=== PATIENT | male | born 1950 | race Caucasian/White ===

== ENCOUNTER 2018-04-15 18:57 | Emergency (ER) | payer MEDICARE, OTHER ==
--- NOTE | 2018-04-15 19:40 | ERPHSYRPT ---
- History of Present Illness Time Seen by Provider: 04/15/18 19:22 Source: patient Exam Limitations: no limitations Patient Subjective Stated Complaint: pt states that he was at work yesterday and had his hammer hanging on his pants and it kept hitting his right knee everytime he walked and by the end of the day he wasn't able to walk on it. pt has had 650mg Tylenol and 10mg of Baclofen at 1400 Triage Nursing Assessment: pt is alert and oriented. pt using wheelchair currently. he usually is able to ambulate easily. pt right knee does not have any obvious swelling as compared to the the left knee. pt does have limited mobility of his right knee and is unable to bend it or put any weight on it. no bruising redness or abrasions noted. pt states that his pain is mostly on the outer aspect of his knee. Physician History: Pt started c/o pain in his right lateral knee, and leg area since yesterday, since he sustained repetitive injuries from a hammer to that area yesterday. He denies direct trauma, fall, swelling, no chest pain, SOB, nausea, other complaints. His states, he has been receiving steroid shots to his right knee, last one was 2- 3 months ago Method of Injury: other (repetitive, minor injuries) Occurred: yesterday Quality: constant Severity of Pain-Max: moderate Severity of Pain-Current: moderate Lower Extremities Pain: knee: right Modifying Factors: Improves With: movement Associated Symptoms: none Allergies/Adverse Reactions: No Known Drug Allergies Allergy (Unverified 07/04/14 07:55) Home Medications: Metformin HCl [Metformin HCl ER] 500 mg PO DAILY 07/04/14 [History] Ropinirole HCl 1 mg PO DAILY 07/04/14 [History] Simvastatin 10 mg PO DAILY 07/04/14 [History] Naproxen 500 mg [Naprosyn 500 MG] 250 mg PO BID 04/15/18 [History] Hx Tetanus, Diphtheria Vaccination/Date Given: Yes (04/01/18) Hx Influenza Vaccination/Date Given: Yes (2012) Hx Pneumococcal Vaccination/Date Given: No Immunizations Up to Date: Yes - Review of Systems Constitutional: No Symptoms Respiratory: No Symptoms Cardiac: No Symptoms Abdominal/Gastrointestinal: No Symptoms Musculoskeletal: Joint Pain All Other Systems: Reviewed and Negative - Past Medical History Pertinent Past Medical History: Yes Cardiac History: High Cholesterol, Hypertension Endocrine Medical History: Diabetes Type II Male Reproductive Disorders: Prostate Cancer Other Medical History: skin cancer. - Past Surgical History Past Surgical History: Yes Male Surgical History: Prostate Surgery - Social History Smoking Status: Former smoker Exposure to second hand smoke: No Drug Use: none Patient Lives Alone: No - Nursing Vital Signs Nursing Vital Signs: Initial Vital Signs Temperature 98.4 F 04/15/18 18:58 Pulse Rate 82 04/15/18 18:58 Respiratory Rate 16 04/15/18 18:58 Blood Pressure 159/72 04/15/18 18:58 O2 Sat by Pulse Oximetry 97 04/15/18 18:58 Pain Scale Pain Intensity 8 - Physical Exam General Appearance: no apparent distress Eyes, Ears, Nose, Throat Exam: normal ENT inspection Neck Exam: normal inspection, non-tender Cardiovascular/Respiratory Exam: chest non-tender, normal breath sounds, regular rate/rhythm, heart sounds normal, No no JVD Gastrointestinal/Abdominal Exam: non-tender, soft Back Exam: normal inspection, No CVA tenderness Knees Exam: right knee: no evidence of injury, pain (in the fibular area, no swelling, bruise, or discoloration, no effusion, limited motions due to pain.), soft tissue tenderness (good distal pulses and sensation on the foot.) Neuro/Tendon Exam: normal sensation, normal motor functions Mental Status Exam: alert, oriented x 3 Skin Exam: normal color, warm, dry, No rash SpO2 Interpretation: normal SpO2: 97 Oxygen Delivery: Room Air - Radiology Exams Knee X-ray Interpretation: Interpreted by me, Other (severe DJD, no fracture) Ordered Tests: Active Orders 24 hr Category Date Time Status KNEE (3 VIEWS) Stat Exams 04/15/18 20:12 Taken VENOUS UNILAT/LIMITED EXTREMIT [US] Stat Exams 04/15/18 20:30 Taken CBC W DIFF Stat Lab 04/15/18 19:58 Completed CMP Stat Lab 04/15/18 19:58 Completed D-DIMER QUANTITATION Stat Lab 04/15/18 19:58 Completed PROTIME WITH INR Stat Lab 04/15/18 19:58 Completed PTT Stat Lab 04/15/18 19:58 Completed Uric Acid Stat Lab 04/15/18 19:58 Completed Medication Summary Discontinued Medications Generic Name Dose Route Start Last Admin Trade Name Freq PRN Reason Stop Dose Admin Ibuprofen 400 mg 04/15/18 21:26 04/15/18 21:28 Motrin 400 Mg PO 04/15/18 21:27 400 mg STAT ONE Administration Ibuprofen Confirm 04/15/18 21:27 Motrin 400 Mg Administered 04/15/18 21:28 Dose 400 mg .ROUTE .STK-MED ONE Lab/Rad Data: Laboratory Result Diagrams 04/15/18 19:58 04/15/18 19:58 Laboratory Results 04/15/18 04/15/18 04/15/18 Range/Units 19:58 19:58 19:58 WBC (4.0-10.5) K/mm3 RBC (4.1-5.6) M/mm3 Hgb (12.5-18.0) gm/dl Hct (42-50) % MCV (78-100) fl MCH (26-32) pg MCHC (32-36) g/dl RDW (11.5-14.0) % Plt Count (150-450) K/mm3 MPV (6-9.5) fl Gran % (36.0-66.0) % Eos # (Auto) (0-0.5) Absolute Lymphs (auto) (1.0-4.6) Absolute Monos (auto) (0.0-1.3) Lymphocytes % (24.0-44.0) % Monocytes % (0.0-12.0) % Eosinophils % (0.00-5.0) % Basophils % (0.0-0.4) % Absolute Granulocytes (1.4-6.9) Basophils # (0-0.4) PT 11.9 (8.83-12.87) SECONDS INR 1.02 (0.8-3.0) APTT 31.7 (24.1-36.1) SECONDS D-Dimer 276 (215-500) ng/mL Sodium 142 (137-145) mmol/L Potassium 4.5 (3.5-5.1) mmol/L Chloride 103 (98-107) mmol/L Carbon Dioxide 25 (22-30) mmol/L Anion Gap 18.0 H (5-15) MEQ/L BUN 19 (9-20) mg/dL Creatinine 0.91 (0.66-1.25) mg/dL Estimated GFR > 60.0 ML/MIN Glucose 166 H (74-106) mg/dL Uric Acid 4.1 (3.5-7.2) mg/dL Calcium 9.8 (8.4-10.2) mg/dL Total Bilirubin 0.70 (0.2-1.3) mg/dL AST 26 (17-59) U/L ALT 28 (0-50) U/L Alkaline Phosphatase 62 (38-126) U/L Serum Total Protein 7.4 (6.3-8.2) g/dL Albumin 4.2 (3.5-5.0) g/dL 04/15/18 Range/Units 19:58 WBC 6.6 (4.0-10.5) K/mm3 RBC 4.89 (4.1-5.6) M/mm3 Hgb 14.7 (12.5-18.0) gm/dl Hct 43.1 (42-50) % MCV 88.1 (78-100) fl MCH 30.1 (26-32) pg MCHC 34.1 (32-36) g/dl RDW 13.6 (11.5-14.0) % Plt Count 292 (150-450) K/mm3 MPV 9.9 H (6-9.5) fl Gran % 55.3 (36.0-66.0) % Eos # (Auto) 0.14 (0-0.5) Absolute Lymphs (auto) 2.04 (1.0-4.6) Absolute Monos (auto) 0.73 (0.0-1.3) Lymphocytes % 30.9 (24.0-44.0) % Monocytes % 11.1 (0.0-12.0) % Eosinophils % 2.1 (0.00-5.0) % Basophils % 0.6 (0.0-0.4) % Absolute Granulocytes 3.65 (1.4-6.9) Basophils # 0.04 (0-0.4) PT (8.83-12.87) SECONDS INR (0.8-3.0) APTT (24.1-36.1) SECONDS D-Dimer (215-500) ng/mL Sodium (137-145) mmol/L Potassium (3.5-5.1) mmol/L Chloride (98-107) mmol/L Carbon Dioxide (22-30) mmol/L Anion Gap (5-15) MEQ/L BUN (9-20) mg/dL Creatinine (0.66-1.25) mg/dL Estimated GFR ML/MIN Glucose (74-106) mg/dL Uric Acid (3.5-7.2) mg/dL Calcium (8.4-10.2) mg/dL Total Bilirubin (0.2-1.3) mg/dL AST (17-59) U/L ALT (0-50) U/L Alkaline Phosphatase (38-126) U/L Serum Total Protein (6.3-8.2) g/dL Albumin (3.5-5.0) g/dL - Progress Progress: improved Progress Note: 04/15/18 21:53 I discussed X ray and Venous doppler results with patient and his family, suggested to follow up with his doctor and Orthopedic surgeon next week, continue crutches and immobilizer as directed, return if severe pain, swelling, redness, or fever> 102 F. Counseled pt/family regarding: diagnosis, need for follow-up, rad results - Departure Time of Disposition: 21:54 Departure Disposition: Home Clinical Impression: Knee pain, acute Qualifiers: Laterality: right Qualified Code(s): M25.561 - Pain in right knee Condition: Stable Critical Care Time: No Referrals: [facility] [NON-STAFF PHY W/O PRIVILEGES] - Instructions: Knee Pain (DC) Additional Instructions: Rest with elevated leg x 2-3 days, follow up with your PCP and Orthopedic surgeon next week, return if severe pain, swelling, redness, or fever> 102 F!
[2018-04-15 20:02] LABS: BASOPHIL % 0.6 % (0.0-0.4); Basophil (Absolute #) 0.04 (0-0.4); Eosinophil % 2.1 % (0.00-5.0); Eosinophil (Absolute #) 0.14 (0-0.5); Granulocyte Absolute (ANC) 3.65 (1.4-6.9); Granulocytes % 55.3 % (36.0-66.0); Hematocrit 43.1 % (42-50); Hemoglobin 14.7 gm/dl (12.5-18.0); Lymphocyte (Absolute #) 2.04 (1.0-4.6); Lymphocytes % 30.9 % (24.0-44.0); Mean Cell Volume 88.1 fl (78-100); Mean Corpuscular Hemoglobin 30.1 pg (26-32); Mean Corpuscular Hgb Concent. 34.1 g/dl (32-36); Mean Platelet Volume 9.9 fl (6-9.5); Monocyte (Absolute #) 0.73 (0.0-1.3); Monocytes % 11.1 % (0.0-12.0); Platelet Count 292 K/mm3 (150-450); Red Blood Count 4.89 M/mm3 (4.1-5.6); Red Cell Distribution Width 13.6 % (11.5-14.0); White Blood Count 6.6 K/mm3 (4.0-10.5)
[2018-04-15 20:17] LABS: INR 1.02 (0.8-3.0)
[2018-04-15 20:20] LABS: PTT 31.7 SECONDS (24.1-36.1)
[2018-04-15 20:22] LABS: ALBUMIN 4.2 g/dL (3.5-5.0); ALKALINE PHOSPHATASE 62 U/L (38-126); BLOOD UREA NITROGEN 19 mg/dL (9-20); CHLORIDE 103 mmol/L (98-107); Calcium 9.8 mg/dL (8.4-10.2); Carbon Dioxide 25 mmol/L (22-30); Creatinine 1 0.91 mg/dL (0.66-1.25); Glucose 166 mg/dL (74-106); Potassium 4.5 mmol/L (3.5-5.1); SGOT/AST 26 U/L (17-59); SGPT/ALT 28 U/L (0-50); SODIUM 142 mmol/L (137-145); Total Protein 7.4 g/dL (6.3-8.2)
[2018-04-15] MEDS ORDERED: MOTRIN 400 MG PO ONE (21:26)
[2018-04-15] MEDS ORDERED: MOTRIN 400 MG ONE (21:27)
[2018-04-15 21:34] VITALS: PULSE 76
[2018-04-15 21:55] VITALS: O2SAT 97
[2018-04-15 22:09] VITALS: BP 154/75
--- NOTE | 2018-04-16 08:22 | XRAY ---
Indication: Pain following injury. Two-dimensional sonogram and color Doppler imaging of the major venous vessels of the right leg was performed. Comparison: None No thrombus seen in the examined deep venous vessels of the right leg including greater saphenous vein. Veins demonstrate normal compressibility. Venous waveforms are normal with and without augmentation. Impression: Right leg negative for DVT. Comment: Preliminary report was given.
--- NOTE | 2018-04-16 08:28 | XRAY ---
Indication: Pain following injury. Comparison: None 3 views of the left knee demonstrates incomplete cortical radiolucency involving the lateral metaphysis of the tibia, possible fracture. Elsewhere mild tricompartmental degenerative osteophytes and small nonspecific suprapatellar effusion. Comment: Preliminary interpretation was made by [facility]. No critical discrepancy.
== END 2018-04-15 22:00 | disposition home or self-care (01) ==
LOC: ED 18:57
DX: M79.661 Pain in right lower leg (principal); W22.8XXA Striking against or struck by other objects, initial encounter; Y93.9 Activity, unspecified; Y99.0 Civilian activity done for income or pay
CPT/HCPCS: 36415; 73562; 80053; 84550; 85025; 85379; 85610; 85730; 93971; 99284; A9270-GY

== ENCOUNTER 2019-02-18 14:16 | Observation (INO) | payer MEDICARE, OTHER ==
[2019-02-18 17:47] LABS: Hematocrit 41.7 % (42-50); Mean Cell Volume 87.8 fl (78-100); Mean Corpuscular Hemoglobin 29.5 pg (26-32); Mean Corpuscular Hgb Concent. 33.6 g/dl (32-36); Mean Platelet Volume 10.1 fl (6-9.5); Platelet Count 309 K/mm3 (150-450); Red Blood Count 4.75 M/mm3 (4.1-5.6); Red Cell Distribution Width 13.7 % (11.5-14.0); White Blood Count 6.2 K/mm3 (4.0-10.5)
[2019-02-18 17:50] LABS: ANION GAP 15.8 MEQ/L (5-15); BLOOD UREA NITROGEN 16 mg/dL (9-20); CHLORIDE 110 mmol/L (98-107); Calcium 9.5 mg/dL (8.4-10.2); Carbon Dioxide 21 mmol/L (22-30); Creatinine 1 0.78 mg/dL (0.66-1.25); Glucose 108 mg/dL (74-106); SODIUM 143 mmol/L (137-145)
[2019-02-18] MEDS: ROCEPHIN 1 Gm-D5w 50 ml Bag** 1 G/50 ML IVPB IV SCH (18:17)
[2019-02-18] MEDS: Sodium Chloride 0.9% 1000 ML 1,000 ML IV SCH (18:17)
[2019-02-18] MEDS: Zithromax 500 MG/ 250 ML NaCl Premix 500 MG/250 ML IVPB IV SCH (18:20)
[2019-02-18] MEDS: REQUIP 2MG TAB PO SCH (21:31)
[2019-02-18] MEDS: Tessalon Perles 100 MG PO SCH (21:31)
[2019-02-18] MEDS: Naprosyn 500 MG PO SCH (21:33)
[2019-02-18] MEDS: Zocor 10MG PO SCH (21:34)
[2019-02-18] MEDS: NEURONTIN 300 MG PO SCH (21:34)
[2019-02-18] MEDS ORDERED: NON-FORMULARY ITEM (Ropinirole Hcl [Ropinirole Hcl] 1 MG) PO SCH (22:00)
[2019-02-18] MEDS ORDERED: SIMVASTATIN 10 MG PO SCH (22:00)
[2019-02-18 22:53] LABS: BAND 2 % (0.0-2.0); Eosinophil 3 % (0.00-3.0); Lymphocytes 45 % (24-44); Monocyte 4 % (0.0-12.0); Neutrophils 46 % (36.-66.); Platelet Estimate NORMAL (NORMAL); Total Cells Counted 100
[2019-02-18 22:54] LABS: ANISOCYTOSIS 1+; Poikilocytosis 1+; Toxic Granulation 2+
[2019-02-19 03:37] LABS: INFLUENZA A NEGATIVE (NEGATIVE); INFLUENZA B NEGATIVE (NEGATIVE); RESPIRATORY SYNCTIAL VIRUS NEGATIVE (Negative)
[2019-02-19] MEDS: PROVENTIL 2.5 MG/3 ML NEB IH PRN ×2 (07:03→16:35)
[2019-02-19] MEDS ORDERED: NON-FORMULARY ITEM (Metformin Hcl [Metformin Er Osmotic] 500 MG) PO SCH (08:00)
--- NOTE | 2019-02-19 08:41 | XRAY ---
Indication: Fever and cough. Pneumonia. Comparison: January 06, 2016. PA/lateral chest remains clear. Heart and mediastinal structures within normal limits. Bony thorax intact again with mild degenerative changes. No new/acute findings. Impression: Stable nonacute chest.
--- NOTE | 2019-02-19 09:19 | PCM.SSS ---
History of Present Illness - Chief Complaint Chief Complaint: c/o cough and shortness of breath with fever for 7 days. Patient has failed History of Present Illness: is a 68 year old male came to office with c/o fever, chills for 1 week duration. Patient was treated as outpatient treatment and failed. - Review of Systems Constitutional: No Fever, No Chills Eyes: No Symptoms Ears, Nose, & Throat: No Symptoms Respiratory: Cough, Orthopnea, Short Of Breath, Wheezing Cardiac: No Chest Pain, No Edema, No Syncope Abdominal/Gastrointestinal: No Abdominal Pain, No Nausea, No Vomiting, No Diarrhea Genitourinary Symptoms: No Dysuria Musculoskeletal: No Back Pain, No Neck Pain Skin: No Rash Neurological: No Dizziness, No Focal Weakness, No Sensory Changes Psychological: No Symptoms Endocrine: No Symptoms Hematologic/Lymphatic: No Symptoms Immunological/Allergic: No Symptoms Medications & Allergies Home Medications: Home Medication List Metformin HCl [Metformin ER Osmotic] 500 mg PO BIDWM 07/04/14 [History Confirmed 02/18/19] Ropinirole HCl 1 mg PO HS 07/04/14 [History Confirmed 02/18/19] Simvastatin 10 mg PO HS 07/04/14 [History Confirmed 02/18/19] Naproxen 500 mg [Naprosyn 500 MG] 250 mg PO BID 04/15/18 [History Confirmed 02/18/19] Benzonatate [Tessalon Perle] 100 mg PO TID 02/18/19 [History Confirmed 02/18/19] Gabapentin 600 mg PO HS 02/18/19 [History Confirmed 02/18/19] Levofloxacin [Levaquin] 500 mg PO EVENING MEAL 02/18/19 [History Confirmed 02/18] Allergies/Adverse Reactions: Allergies Allergy/AdvReac Type Severity Reaction Status Date / Time No Known Drug Allergies Allergy Unverified 07/04/14 07:55 - Past Medical History Past Medical History: Yes Cardiac History: High Cholesterol, Hypertension Endocrine Medical History: Diabetes Type II Male Reproductive Disorders: Prostate Cancer Comment: skin cancer. - Past Surgical History Past Surgical History: Yes Male Surgical History: Prostate Surgery - Social History Smoking Status: Former smoker Exposure to second hand smoke: No Alcohol: Daily Drug Use: none - Physical Exam Vital Signs: Vital Signs - 24 hr Temp Pulse Resp BP Pulse Ox 02/19/19 07:51 98.4 F 78 18 163/76 94 L 02/19/19 07:04 76 20 95 02/19/19 03:14 98.4 F 78 20 152/70 98 02/19/19 00:00 98 F 81 18 134/81 93 L 02/18/19 20:00 98.2 F 81 20 166/79 93 L 02/18/19 16:57 92 L 02/18/19 15:44 97.6 F 93 H 22 148/72 97 02/18/19 15:09 97.6 F 93 H 22 148/72 95 General Appearance: no apparent distress, alert Neurologic Exam: alert, oriented x 3, cooperative, normal mood/affect, nml cerebellar function, nml station & gait, sensation nml, No motor deficits Eye Exam: PERRL/EOMI, eyes nml inspection Ears, Nose, Throat Exam: normal ENT inspection, TMs normal, pharynx normal, moist mucous membranes Neck Exam: normal inspection, non-tender, supple, full range of motion Respiratory Exam: normal breath sounds, diminished breath sounds, prolonged expirations, crackles/rales, rhonchi, wheezing, No respiratory distress Cardiovascular Exam: regular rate/rhythm, normal heart sounds, normal peripheral pulses Gastrointestinal/Abdomen Exam: soft, normal bowel sounds, No tenderness, No mass Back Exam: normal inspection, normal range of motion, No CVA tenderness, No vertebral tenderness Extremity Exam: normal inspection, normal range of motion, pelvis stable Skin Exam: normal color, warm, dry, No rash Lymphatic Exam: No adenopathy Results - Labs Lab/Micro Results: Lab Results-Last 24 Hours 02/18/19 02/18/19 02/19/19 Range/Units 17:00 17:00 02:55 WBC 6.2 (4.0-10.5) K/mm3 RBC 4.75 (4.1-5.6) M/mm3 Hgb 14.0 (12.5-18.0) gm/dl Hct 41.7 L (42-50) % MCV 87.8 (78-100) fl MCH 29.5 (26-32) pg MCHC 33.6 (32-36) g/dl RDW 13.7 (11.5-14.0) % Plt Count 309 (150-450) K/mm3 MPV 10.1 H (6-9.5) fl Segmented Neutrophils 46 (36.-66.) % Band Neutrophils 2 (0.0-2.0) % Lymphocytes (Manual) 45 H (24-44) % Monocytes (Manual) 4 (0.0-12.0) % Eosinophils (Manual) 3 (0.00-3.0) % Toxic Granulation 2+ Platelet Estimate NORMAL (NORMAL) RBC Morphology ABNORMAL Poikilocytosis 1+ Anisocytosis 1+ Sodium 143 (137-145) mmol/L Potassium 4.0 (3.5-5.1) mmol/L Chloride 110 H (98-107) mmol/L Carbon Dioxide 21 L (22-30) mmol/L Anion Gap 15.8 H (5-15) MEQ/L BUN 16 (9-20) mg/dL Creatinine 0.78 (0.66-1.25) mg/dL Estimated GFR > 60.0 ML/MIN Glucose 108 H (74-106) mg/dL Calcium 9.5 (8.4-10.2) mg/dL Influenza Type A Ag NEGATIVE (NEGATIVE) Influenza Type B Ag NEGATIVE (NEGATIVE) RSV (PCR) NEGATIVE (Negative) - Radiology Impressions Radiology Exams & Impressions: Radiology Procedures Category Date Time Status CHEST 2 VIEWS (PA AND LAT) Urgent Exams 02/18/19 19:52 Completed - Other Procedures and Tests Respiratory Therapy 02/18/19 16:56 Respiratory Therapy Assessment DAILY 02/19/19 07:04 Peak Expiratory Flow Rate ONCE Assessment/Plan (1) Bronchitis, chronic obstructive w acute bronchitis Current Visit: Yes Status: Acute Assessment & Plan: Last Vital Signs Temp 98.4 F 02/19/19 07:51 Pulse 78 02/19/19 07:51 Resp 18 02/19/19 07:51 BP 163/76 02/19/19 07:51 Pulse Ox 94 L 02/19/19 07:51 Allergies No Known Drug Allergies Allergy (Unverified 07/04/14 07:55) Active Medications Acetaminophen (Tylenol 325 Mg) 650 mg PO Q6H PRN PRN PRN Reason: PAIN AND/OR FEVER Stop: 03/21/19 08:28 Albuterol Sulfate (Proventil 2.5 Mg/3 Ml Neb) 2.5 mg IH Q4H PRN PRN PRN Reason: SHORTNESS OF BREATH/WHEEZING Stop: 03/20/19 16:54 Last Admin: 02/19/19 07:03 Dose: 2.5 mg Benzonatate (Tessalon Perles 100 Mg) 100 mg PO TID SATISH Stop: 03/20/19 21:59 Last Admin: 02/18/19 21:31 Dose: 100 mg Gabapentin (Neurontin 300 Mg) 600 mg PO HS [facility] Stop: 03/20/19 21:59 Last Admin: 02/18/19 21:34 Dose: 600 mg Ceftriaxone Sodium/Dextrose (Rocephin 1 Gm-D5w 50 Ml Bag) 1 g in 50 mls @ 100 mls/hr IV Q24H [facility] Stop: 03/20/19 17:59 Last Admin: 02/18/19 18:17 Dose: 100 mls/hr Azithromycin (Zithromax 500 Mg/ 250 Ml Nacl Premix) 500 mg in 250 mls @ 250 mls /hr IV Q24H [facility] Stop: 03/20/19 18:59 Last Admin: 02/18/19 18:20 Dose: 250 mls/hr Sodium Chloride (Sodium Chloride 0.9% 1000 Ml) 1,000 mls @ 50 mls/hr IV .Q20H [facility] Stop: 03/20/19 17:44 Last Admin: 02/18/19 18:17 Dose: 50 mls/hr Metformin HCl (Glucophage Xr 500 Mg) 500 mg PO BIDWM [facility] Stop: 03/20/19 18:59 Naproxen (Naprosyn 500 Mg) 250 mg PO BID [facility] Stop: 03/20/19 21:59 Last Admin: 02/18/19 21:33 Dose: 250 mg Ropinirole HCl (Requip 2mg Tab) 1 mg PO HS [facility] Stop: 03/20/19 21:59 Last Admin: 02/18/19 21:31 Dose: 1 mg Simvastatin (Zocor 10mg) 10 mg PO [facility] Stop: 03/20/19 21:59 Last Admin: 02/18/19 21:34 Dose: 10 mg Intake & Output 02/18/19 02/19/19 11:59 11:59 Intake Total 1311 Balance 1311 Weight 91.6 kg Orders 02/18/19 14:54 Implement Pneumonia Pathway ROUTINE Place in Observation ROUTINE 02/18/19 15:41 Repatcher/Discharge Plan ROUTINE 02/18/19 16:06 Nutritional Admission Screen once 02/18/19 16:55 Albuterol 2.5 mg/3 ml Neb [Proventil 2.5 mg/3 ml Neb] 2.5 mg IH Q4H PRN PRN Pulse Oximetry .spot check 02/18/19 16:56 Respiratory Therapy Assessment DAILY 02/18/19 17:26 Activity as Tolerated TOLERATED IV Insertion ROUTINE 02/18/19 17:45 NaCl 0.9% 1000 ml [Sodium Chloride 0.9% 1000 ML] 1,000 ml IV 50 mls/hr 02/18/19 18:00 Ceftriaxone 1 GM/50 ML PREMIX* [ROCEPHIN 1 Gm-D5w 50 ml Bag] 1 g in 50 ml IV Q24H 02/18/19 18:27 BLOOD CULTURE Urgent 02/18/19 19:00 Azithromycin 500 mg/250 ml [Zithromax 500 MG/ 250 ML NaCl Premix] 500 mg in 250 ml IV Q24H Metformin HCl Xr 500 mg [Glucophage XR 500 MG] 500 mg PO BIDWM 02/18/19 22:00 Benzonatate 100 mg [Tessalon Perles 100 MG] 100 mg PO TID Gabapentin 300 mg [Neurontin 300 mg] 600 mg PO HS Naproxen 500 mg [Naprosyn 500 MG] 250 mg PO BID Ropinirole 2Mg [Requip 2Mg Tab] 1 mg PO HS Simvastatin 10 mg [Zocor 10MG] 10 mg PO HS 02/19/19 07:04 Peak Expiratory Flow Rate ONCE 02/19/19 08:29 Acetaminophen 325 mg [Tylenol 325 mg] 650 mg PO Q6H PRN PRN 02/19/19 Dinner Regular Diet Lab Tests 02/18/19 02/18/19 02/19/19 17:00 17:00 02:55 WBC 6.2 RBC 4.75 Hgb 14.0 Hct 41.7 L MCV 87.8 MCH 29.5 MCHC 33.6 RDW 13.7 Plt Count 309 MPV 10.1 H Segmented Neutrophils 46 Band Neutrophils 2 Lymphocytes (Manual) 45 H Monocytes (Manual) 4 Eosinophils (Manual) 3 Toxic Granulation 2+ Platelet Estimate NORMAL RBC Morphology ABNORMAL Poikilocytosis 1+ Anisocytosis 1+ Sodium 143 Potassium 4.0 Chloride 110 H Carbon Dioxide 21 L Anion Gap 15.8 H BUN 16 Creatinine 0.78 Estimated GFR > 60.0 Glucose 108 H Calcium 9.5 Influenza Type A Ag NEGATIVE Influenza Type B Ag NEGATIVE RSV (PCR) NEGATIVE Code(s): J44.0 - CHRONIC OBSTRUCTIVE PULMON DISEASE W ACUTE LOWER RESP INFCT (2) Bronchitis Current Visit: Yes Status: Acute Code(s): J40 - BRONCHITIS, NOT SPECIFIED ACUTE OR CHRONIC Hospital Summary - Hospital Course Hospital Course: Chief Complaint Diagnosis PNEUMONIA Allergies Allergy/AdvReac Type Severity Reaction Status Date / Time No Known Drug Allergies Allergy Unverified 07/04/14 07:55 Vital Signs (Last 24 hours) Temp Pulse Resp BP Pulse Ox 02/19/19 07:51 98.4 F 78 18 163/76 94 L 02/19/19 07:04 76 20 95 02/19/19 03:14 98.4 F 78 20 152/70 98 02/19/19 00:00 98 F 81 18 134/81 93 L 02/18/19 20:00 98.2 F 81 20 166/79 93 L 02/18/19 16:57 92 L 02/18/19 15:44 97.6 F 93 H 22 148/72 97 02/18/19 15:09 97.6 F 93 H 22 148/72 95 Home Medications Medication Instructions Recorded Confirmed Last Taken Type Benzonatate [Tessalon Perle] 100 mg PO TID 02/18/19 02/18/19 02/18/19 12:00 History Gabapentin 600 mg PO HS 02/18/19 02/18/19 02/17/19 History Levofloxacin [Levaquin] 500 mg PO EVENING MEAL 02/18/19 02/18/19 02/17/19 History Current Medications Generic Name Dose Route Start Last Admin Trade Name Freq PRN Reason Stop Dose Admin Acetaminophen 650 mg 02/19/19 08:29 Tylenol 325 Mg PO 03/21/19 08:28 Q6H PRN PRN PAIN AND/OR FEVER Albuterol Sulfate 2.5 mg 02/18/19 16:55 02/19/19 07:03 Proventil 2.5 Mg/3 Ml Neb IH 03/20/19 16:54 2.5 mg Q4H PRN PRN Administration SHORTNESS OF BREATH/WHEEZING Benzonatate 100 mg 02/18/19 22:00 02/18/19 21:31 Tessalon Perles 100 Mg PO 03/20/19 21:59 100 mg TID SATISH Administration Gabapentin 600 mg 02/18/19 22:00 02/18/19 21:34 Neurontin 300 Mg PO 03/20/19 21:59 600 mg HS SATISH Administration Ceftriaxone Sodium/Dextrose 1 g in 50 mls @ 100 mls/hr 02/18/19 18:00 18:17 Rocephin 1 Gm-D5w 50 Ml Bag IV 03/20/19 17:59 100 mls/hr Q24H SATISH Administration Azithromycin 500 mg in 250 mls @ 250 mls/hr 02/18/19 19:00 02/18/19 18:20 Zithromax 500 Mg/ 250 Ml Nacl Premix IV 03/20/19 18:59 250 mls/hr Q24H SATISH Administration Sodium Chloride 1,000 mls @ 50 mls/hr 02/18/19 17:45 02/18/19 18:17 Sodium Chloride 0.9% 1000 Ml IV 03/20/19 17:44 50 mls/hr .Q20H SATISH Administration Metformin HCl 500 mg 02/18/19 19:00 Glucophage Xr 500 Mg PO 03/20/19 18:59 BIDWM SATISH Naproxen 250 mg 02/18/19 22:00 02/18/19 21:33 Naprosyn 500 Mg PO 03/20/19 21:59 250 mg BID SATISH Administration Ropinirole HCl 1 mg 02/18/19 22:00 02/18/19 21:31 Requip 2mg Tab PO 03/20/19 21:59 1 mg HS SATISH Administration Simvastatin 10 mg 02/18/19 22:00 02/18/19 21:34 Zocor 10mg PO 03/20/19 21:59 10 mg HS SATISH Administration Intake & Output (Last 24 hours) 03/23/19 03/24/19 03/25/19 03/26/19 11:59 11:59 11:59 11:59 Intake Total 1311 Balance 1311 Weight 91.6 kg Microbiology Results (Last 24 hours) 02/18/19 18:27 Blood Blood Culture Gram Stain - Pending 02/18/19 18:27 Blood Blood Culture - Pending 02/18/19 18:00 Blood Blood Culture Gram Stain - Pending 02/18/19 18:00 Blood Blood Culture - Pending Laboratory Results (Last 24 hours) 02/19/19 02/18/19 02/18/19 02:55 17:00 17:00 WBC 6.2 RBC 4.75 Hgb 14.0 Hct 41.7 L MCV 87.8 MCH 29.5 MCHC 33.6 RDW 13.7 Plt Count 309 MPV 10.1 H Segmented Neutrophils 46 Band Neutrophils 2 Lymphocytes (Manual) 45 H Monocytes (Manual) 4 Eosinophils (Manual) 3 Toxic Granulation 2+ Platelet Estimate NORMAL RBC Morphology ABNORMAL Poikilocytosis 1+ Anisocytosis 1+ Sodium 143 Potassium 4.0 Chloride 110 H Carbon Dioxide 21 L Anion Gap 15.8 H BUN 16 Creatinine 0.78 Estimated GFR > 60.0 Glucose 108 H Calcium 9.5 Influenza Type A Ag NEGATIVE Influenza Type B Ag NEGATIVE RSV (PCR) NEGATIVE Orders (Last 24 hours) Category Date Time Status Activity as Tolerated TOLERATED Activity 02/18/19 17:26 Active IV Insertion ROUTINE Care 02/18/19 17:26 Active Implement Pneumonia Pathway ROUTINE Care 02/18/19 14:[address] in Observation ROUTINE Care 02/18/19 14:54 Active Repatcher/Discharge Plan ROUTINE Cons 02/18/19 15:41 Active Nutritional Admission Screen once Diet 02/18/19 16:06 Active Regular Diet Diet 02/19/19 Dinner Active CHEST 2 VIEWS (PA AND LAT) Urgent Exams 02/18/19 19:52 Completed BLOOD CULTURE Urgent Lab 02/18/19 18:27 Received BMP Urgent Lab 02/18/19 17:00 Completed CBC W DIFF Urgent Lab 02/18/19 17:00 Completed Manual Differential NC Urgent Lab 02/18/19 17:00 Completed Respiratory Panel Stat Lab 02/19/19 02:55 Completed Acetaminophen 325 mg [Tylenol 325 mg] Med 02/19/19 08:29 Active 650 mg PO Q6H PRN PRN Albuterol 2.5 mg/3 ml Neb [Proventil 2.5 mg/3 ml Neb Med 02/18/19 16:55 Active ] 2.5 mg IH Q4H PRN PRN Azithromycin 500 mg/250 ml [Zithromax 500 MG/ 250 ML Med 02/18/19 19:00 Active NaCl Premix] 500 mg in 250 ml IV Q24H Benzonatate 100 mg [Tessalon Perles 100 MG] Med 02/18/19 22:00 Active 100 mg PO TID Ceftriaxone 1 GM/50 ML PREMIX* [ROCEPHIN 1 Gm-D5w 50 ml Med 02/18/19 18:00 Active Bag] 1 g in 50 ml IV Q24H Gabapentin 300 mg [Neurontin 300 mg] Med 02/18/19 22:00 Active 600 mg PO HS Metformin HCl Xr 500 mg [Glucophage XR 500 MG] Med 02/18/19 19:00 Active 500 mg PO BIDWM NaCl 0.9% 1000 ml [Sodium Chloride 0.9% 1000 ML] 1,000 Med 02/18/19 17:45 Active ml IV 50 mls/hr Naproxen 500 mg [Naprosyn 500 MG] Med 02/18/19 22:00 Active 250 mg PO BID Ropinirole 2Mg [Requip 2Mg Tab] Med 02/18/19 22:00 Active 1 mg PO HS Simvastatin 10 mg [Zocor 10MG] Med 02/18/19 22:00 Active 10 mg PO HS Peak Expiratory Flow Rate ONCE RT 02/19/19 07:04 Active Pulse Oximetry .spot check RT 02/18/19 16:55 Active RT Screen per Nursing Assess ONCE RT 02/18/19 16:06 Completed Respiratory Therapy Assessment DAILY RT 02/18/19 16:56 Active Respiratory Therapy Consult ROUTINE RT 02/18/19 17:35 Completed - Vitals & Intake/Output Vital Signs: Vital Signs Temperature 98.4 F 02/19/19 07:51 Pulse Rate 78 02/19/19 07:51 Respiratory Rate 18 02/19/19 07:51 Blood Pressure 163/76 02/19/19 07:51 O2 Sat by Pulse Oximetry 94 L 02/19/19 07:51 Intake & Output: Intake & Output 02/16/19 02/17/19 02/18/19 02/19/19 11:59 11:59 11:59 11:59 Intake Total 1311 Balance 1311 Weight 91.6 kg - Lab Result Diagrams: 02/18/19 17:00 02/18/19 17:00 Lab Results-Last 24 Hrs: Lab Results-Last 24 Hours 02/18/19 02/18/19 02/19/19 Range/Units 17:00 17:00 02:55 WBC 6.2 (4.0-10.5) K/mm3 RBC 4.75 (4.1-5.6) M/mm3 Hgb 14.0 (12.5-18.0) gm/dl Hct 41.7 L (42-50) % MCV 87.8 (78-100) fl MCH 29.5 (26-32) pg MCHC 33.6 (32-36) g/dl RDW 13.7 (11.5-14.0) % Plt Count 309 (150-450) K/mm3 MPV 10.1 H (6-9.5) fl Segmented Neutrophils 46 (36.-66.) % Band Neutrophils 2 (0.0-2.0) % Lymphocytes (Manual) 45 H (24-44) % Monocytes (Manual) 4 (0.0-12.0) % Eosinophils (Manual) 3 (0.00-3.0) % Toxic Granulation 2+ Platelet Estimate NORMAL (NORMAL) RBC Morphology ABNORMAL Poikilocytosis 1+ Anisocytosis 1+ Sodium 143 (137-145) mmol/L Potassium 4.0 (3.5-5.1) mmol/L Chloride 110 H (98-107) mmol/L Carbon Dioxide 21 L (22-30) mmol/L Anion Gap 15.8 H (5-15) MEQ/L BUN 16 (9-20) mg/dL Creatinine 0.78 (0.66-1.25) mg/dL Estimated GFR > 60.0 ML/MIN Glucose 108 H (74-106) mg/dL Calcium 9.5 (8.4-10.2) mg/dL Influenza Type A Ag NEGATIVE (NEGATIVE) Influenza Type B Ag NEGATIVE (NEGATIVE) RSV (PCR) NEGATIVE (Negative) - Radiology Exams Ordered Rad Exams-Entire Visit: Radiology Procedures Category Date Time Status CHEST 2 VIEWS (PA AND LAT) Urgent Exams 02/18/19 19:52 Completed - Procedures and Test Procedures and Tests throughout Hospitalization: Therapy Orders & Screens 02/18/19 16:06 RT Screen per Nursing Assess ONCE Comment: Protocol Order Physician Instructions: Greater than 3 points order RT Admission Screen Reason For Exam: Triggered on Admission Diagnosis: PNEUMONIA Diagnosis: PNEUMONIA Pneumonia: Yes Home O2: No Asthma: No CHF: No Home CPAP/BIPAP: Yes Home Nebs/MDI: No Total Points: 8 02/18/19 16:56 Respiratory Therapy Assessment DAILY Comment: Diagnosis: PNEUMONIA 02/18/19 17:35 Respiratory Therapy Consult ROUTINE Comment: Reason For Exam: Diagnosis: PNEUMONIA 02/19/19 07:04 Peak Expiratory Flow Rate ONCE Comment: Reason For Exam: Diagnosis: PNEUMONIA - Discharge Discharge Date: 02/19/19 Disposition: Home, Self-Care Condition: Stable Prescriptions: Continue Simvastatin 10 mg PO HS Metformin HCl [Metformin ER Osmotic] 500 mg PO BIDWM Ropinirole HCl 1 mg PO HS Naproxen 500 mg [Naprosyn 500 MG] 250 mg PO BID Gabapentin 600 mg PO HS Benzonatate [Tessalon Perle] 100 mg PO TID Levofloxacin [Levaquin] 500 mg PO EVENING MEAL Follow up with: LUCHO POSADA MD [Primary Care Provider] - 1 Week
[2019-02-19] MEDS: Glucophage XR 500 MG PO SCH ×3 (10:00→16:28)
[2019-02-19] MEDS: TYLENOL 325 MG PO PRN ×2 (10:01→16:28)
[2019-02-19] MEDS: Tessalon Perles 100 MG PO SCH ×3 (10:01→22:25)
[2019-02-19] MEDS: Naprosyn 500 MG PO SCH ×2 (10:02→22:26)
[2019-02-19] MEDS ORDERED: Levofloxacin 500 MG Tablet PO SCH (18:00)
[2019-02-19] MEDS: ROCEPHIN 1 Gm-D5w 50 ml Bag** 1 G/50 ML IVPB IV SCH (18:48)
[2019-02-19] MEDS: DUONEB 0.5-3 MG/3 ml Neb IH SCH ×2 (18:58→23:58)
[2019-02-19] MEDS: Zithromax 500 MG/ 250 ML NaCl Premix 500 MG/250 ML IVPB IV SCH (19:23)
[2019-02-19] MEDS: NEURONTIN 300 MG PO SCH (22:24)
[2019-02-19] MEDS: Zocor 10MG PO SCH (22:25)
[2019-02-19] MEDS: REQUIP 2MG TAB PO SCH (22:25)
[2019-02-20] MEDS: Sodium Chloride 0.9% 1000 ML 1,000 ML IV SCH (02:13)
[2019-02-20] MEDS: DUONEB 0.5-3 MG/3 ml Neb IH SCH ×2 (03:24→07:00)
[2019-02-20 04:39] VITALS: BP 162/67
[2019-02-20 07:32] VITALS: PULSE 88; O2SAT 98
[2019-02-20] MEDS: Tessalon Perles 100 MG PO SCH (08:00)
[2019-02-20] MEDS: Naprosyn 500 MG PO SCH (08:00)
[2019-02-20] MEDS: Glucophage XR 500 MG PO SCH (08:00)
== END 2019-02-20 10:51 | disposition home or self-care (01) ==
LOC: MED SURG 14:54
PROVIDERS: ADMIT General Practice; ATTEND General Practice
DX: J20.9 Acute bronchitis, unspecified (principal); J44.0 Chronic obstructive pulmonary disease with (acute) lower respiratory infection; E78.00 Pure hypercholesterolemia, unspecified; I10 Essential (primary) hypertension; E11.9 Type 2 diabetes mellitus without complications; Z79.899 Other long term (current) drug therapy; Z23 Encounter for immunization
CPT/HCPCS: 36415; 71046; 80048; 82962; 83036; 85025; 87040; 87631; 90662; 94150; 94640; 94760; G0008; G0378; J0456; J0696; J7609; A9270-GY